=== PATIENT | female | born 1950 | race Caucasian/White ===

== ENCOUNTER 2024-02-15 15:32 | Emergency (ER) | payer MEDICARE ==
[~2024-02-15] VITALS: Ht 160 cm; Wt 56.2 kg
[~2024-02-15 15:32] MED LIST: MOTRIN600 MG PO; VICODIN 5/500 505 MG PO
[2024-02-15 15:45] VITALS: BP 132/80
[2024-02-15] MEDS ORDERED: DILTIAZEM HCL120 M2 PO (16:37)
[2024-02-15] MEDS ORDERED: PAROXETINE HCL10 MG PO (16:37)
[2024-02-15] MEDS ORDERED: ROSUVASTATIN CAL5 MG PO (16:37)
[2024-02-15] MEDS ORDERED: BREYNA 160-4.10.3 GM INH (16:39)
== END 2024-02-15 17:41 | disposition home or self-care (01) ==
LOC: ED 15:32
DX: R04.0 Epistaxis (principal); J45.909 Unspecified asthma, uncomplicated

== ENCOUNTER 2024-09-30 15:31 | Emergency (ER) | payer OTHER ==
[~2024-09-30] VITALS: Ht 160 cm; Wt 56.7 kg
[~2024-09-30 15:31] MED LIST changes: +BREYNA 160-4.10.3 GM INH; +DILTIAZEM HCL120 M2 PO; +PAROXETINE HCL10 MG PO; +ROSUVASTATIN CAL5 MG PO
[2024-09-30 16:09] VITALS: BP 149/81
== END 2024-09-30 18:41 | disposition home or self-care (01) ==
LOC: ED 15:31
DX: S93.401A Sprain of unspecified ligament of right ankle, initial encounter (principal); J45.909 Unspecified asthma, uncomplicated; Z79.899 Other long term (current) drug therapy; W01.0XXA Fall on same level from slipping, tripping and stumbling without subsequent striking against object, initial encounter; Y93.01 Activity, walking, marching and hiking; Y92.89 Other specified places as the place of occurrence of the external cause; Y99.8 Other external cause status